=== PATIENT | female | born 1965 | race Caucasian/White ===

== ENCOUNTER 2018-06-17 22:57 | Observation (INO) ==
[2018-06-17] MEDS ORDERED: ASPIRIN PO ONE (23:41)
[2018-06-18] MEDS ORDERED: NITROGLYCERIN TOP ONE (00:24)
[2018-06-18 00:29] LABS: ESTIMATED GFR > 60
[2018-06-18 00:31] LABS: AGAP 13; ALBUMIN 3.9 g/dL (3.5-5.0); ALKALINE PHOSPHATASE 239 U/L (32-104); BUN 20 mg/dL (8-22); CALCIUM 9.7 mg/dL (8.8-10.2); CHLORIDE 90 mmol/L (98-107); CK PROFILE 48 U/L (24-173); COSMO 289; CREATININE 0.7 mg/dL (0.5-0.9); GOT 23 U/L (10-30); GPT 30 U/L (10-36); POTASSIUM 4.3 mmol/L (3.5-5.1); SODIUM 126 mmol/L (136-145); TCO2 23 mmol/L (25-35); TOTAL PROTEIN 7.4 g/dL (6.3-8.3)
[2018-06-18 00:32] LABS: GLUCOSE 686 mg/dL (70-104)
[2018-06-18 00:33] LABS: INR 0.85; PROTIME 12.1 Seconds (11.0-16.0)
[2018-06-18 00:34] LABS: PTT 25.1 Seconds (22.3-41.8)
[2018-06-18] MEDS ORDERED: HUMULIN R IV ONE (00:34)
[2018-06-18] MEDS ORDERED: NS 1,000 ML IV ONE ×2 (00:35→01:46)
[2018-06-18] MEDS ORDERED: HUMULIN R (PARKWAY) ONE ×2 (00:36→08:06)
--- NOTE | 2018-06-18 00:44 | PROVIDER DOCUMENTATION ---
This chart was entered by Flory Joya Scribe, acting as scribe for Karl Forbes MD. HPI-Chest Pain - General Chief Complaint: Chest Pain Stated Complaint: EXTREMITY PAIN Time Seen by Provider: 06/17/18 23:52 Source: patient Allergies/Adverse Reactions: Patient Allergies Allergy/AdvReac Type Severity Reaction Status Date / Time Aminoglycosides Allergy Severe ANAPHYLAXIS Unverified 02/01/18 13:41 meperidine [Meperidine] Allergy Severe ANAPHYLAXIS Unverified 02/01/18 13:41 streptomycin [Streptomycin] Allergy Severe ANAPHYLAXIS Unverified 02/01/18 13:41 Sulfa (Sulfonamide Allergy Severe ANAPHYLAXIS Unverified 02/01/18 13:41 Antibiotics) [Sulfa(Sulfonamide Antibiotics)] codeine Allergy RASH Verified 02/01/18 13:41 Penicillins Allergy RASH Verified 02/01/18 13:41 erythromycin lactobionate * AdvReac SHORTNESS Verified 02/01/18 13:41 [From Erythrocin] OF BREATH Home Medications: Home Medication List Medication Instructions Recorded Confirmed Last Taken Type Budesonide/Formoterol Inhaler 60 puff INH BID 02/05/12 02/05/12 02/05/12 08:00 History [Symbicort 160-4.5 Microgm Inhaler] Bupropion [Wellbutrin] 75 mg PO DAILY 02/05/12 02/05/12 02/05/12 08:00 History Clonidine [Catapres] 0.1 mg PO DAILY 02/05/12 02/05/12 02/04/12 History Clopidogrel [Plavix] 75 mg PO DAILY 02/05/12 02/05/12 02/05/12 08:00 History Diltiazem HCl [Cardizem Cd] 360 mg PO DAILY 02/05/12 02/05/12 02/05/12 08:00 History Docusate Sodium [Colace] 100 mg PO BID 02/05/12 02/05/12 05/08/11 20:00 History Docusate Sodium [Colace] 100 mg PO BID 02/05/12 02/05/12 02/05/12 08:00 History Fluticasone 50 Mcg Nasal [place] 16 gm NS PRN PRN 02/05/12 02/05/12 Unknown History [Flonase] Folic Acid 1 mg PO DAILY 02/05/12 02/05/12 02/05/12 08:00 History Furosemide [Lasix] 20 mg PO PRN PRN 02/05/12 02/05/12 Unknown History Hydrocodone/Acetaminophen [Lortab 1 each PO TID 02/05/12 02/05/12 02/05/12 08:00 History 7.5-500 Tablet] Hydrocodone/Acetaminophen [Lortab 1 each PO TID 02/05/12 02/05/12 02/05/12 12:00 History 7.5-500 Tablet] Lorazepam [Ativan] 0.5 mg PO QHS 02/05/12 02/05/12 Unknown History Lorazepam [Ativan] 1 mg PO DAILY 02/05/12 02/05/12 02/05/12 08:00 History Losartan/Hctz [Hyzaar 100-12.5 mg 1 each PO DAILY 02/05/12 02/05/12 02/05/12 08:00 History Tab] Mirtazapine [Remeron] 45 mg PO QHS 02/05/12 02/05/12 02/04/12 History Omeprazole [Prilosec] 20 mg PO DAILY 02/05/12 02/05/12 02/05/12 08:00 History Oxymetazoline Nasal [place] [Afrin 15 ml MISC PRN PRN 02/05/12 02/05/12 Unknown History Nasal [place]] Potassium Chloride E.r. [K-Dur] 10 meq PO BID 02/05/12 02/05/12 05/07/11 History Potassium Chloride E.r. [K-Dur] 10 meq PO BID 02/05/12 02/05/12 02/05/12 08:00 History Pravastatin Sodium [Pravachol] 20 mg PO QHS 02/05/12 02/05/12 Unknown History Prednisone 1 mg PO DAILY 02/05/12 02/05/12 02/05/12 08:00 History Prednisone 5 mg PO DAILY 02/05/12 02/05/12 02/05/12 08:00 History Promethazine [Phenergan] 25 mg PO Q6HR 02/05/12 02/05/12 Unknown History Sertraline [Zoloft] 150 mg PO DAILY 02/05/12 02/05/12 02/05/12 08:00 History Tramadol [Ultram] 50 mg PO TID 02/05/12 02/05/12 02/05/12 08:00 History Tramadol [Ultram] 50 mg PO TID 02/05/12 02/05/12 02/05/12 12:00 History Aspirin 81 mg PO DAILY 04/03/15 04/03/15 03/24/15 History Insulin Aspart [Novolog Flexpen] 0 unit SQ PRN PRN 04/03/15 04/04/15 04/02/15 History Lisinopril 10 mg PO BID 04/03/15 04/04/15 04/03/15 22:00 History Metformin HCl [Metformin HCl ER] 1,000 mg PO BID 04/03/15 04/04/15 04/03/15 22:00 History Metoprolol Tartrate 0.5 tab PO BID 04/03/15 04/04/15 04/03/15 22:00 History SIMVAstatin [Zocor] 10 mg PO QHS 04/03/15 04/04/15 04/02/15 History Saxagliptin HCl [Onglyza] 2.5 mg PO BID 04/03/15 04/04/15 04/03/15 22:00 History Hydrocodone/Acetaminophen [[place] 1 each PO Q4-6H PRN PRN #30 tablet 04/04/15 Unknown Rx 10-325 Tablet] - History of Present Illness-CP Nature of Presenting Problem: Pt is 52/F with history of CAD (S/P NM & CABG in 2012),diabetes, HTN who presents w/ 4-07/22 substernal chest heaviness that runs down L arm, L shoulder, and back- onset at 1430 today. Pt has taken 81mg of Aspirin at home this morning and has taken gas pills at home w/ no relief. FH is postive for CAD (mom at age 50 of [place]). Location: reports: substernal Chest Pain Radiation: reports: shoulders, back Quality of Pain: reports: pressure Severity in ED: moderate Onset/Duration: this afternoon Timing: still present Context/Activities at Onset: reports: light activity Modifying Factors: improves with: nothing Associated Symptoms: reports: back pain. denies: abdominal pain, diaphoresis, fever/chills, nausea, shortness of breath, vomiting Nitro Today/Relief: no nitro taken today Aspirin Treatment Today: 81 mg x 1 Review of Systems - Adult - REVIEW OF SYSTEMS - ADULT Constitutional: reports: no symptoms reported. denies: chills, fever Eyes: reports: no symptoms reported Ears, Nose, Mouth & Throat: reports: no symptoms reported Cardiovascular: reports: chest pain. denies: edema Respiratory: denies: cough, shortness of breath, wheezing Gastrointestinal: reports: no symptoms reported. denies: abdominal pain, diarrhea, nausea, vomiting Genitourinary: reports: no symptoms reported Musculoskeletal: reports: no symptoms reported Integumentary: reports: no symptoms reported Neurological: reports: no symptoms reported Psychiatric: reports: no symptoms reported Endocrine: reports: no symptoms reported Hematologic/Lymphatic: reports: no symptoms reported Allergic/Immunologic: reports: no symptoms reported All Other Systems: Reviewed and Negative Past History - Adult - PAST MEDICAL HISTORY-ADULT Review of Records: reports: Old Records Reviewed, Nursing Assessment Review, Medications Reviewed, Social history reviewed & non-contributory. Cardiovascular: reports: [place] Diabetes Type: Type 2 Diabetes controlled by:: PO Meds - PRIOR SURGERIES/PROCEDURES Surgical/Procedure History: reports: CABG - FAMILY HISTORY Family History: CAD under 55yo - SOCIAL HISTORY Smoking: quit greater than 1 year, cigarettes Substance Use: none/never Alcohol Use Frequency: never Physical Exam-General - PHYSICAL EXAM-ADULT Initial Vital Signs Reviewed: Yes - CONSTITUTIONAL General Appearance: appears well, alert, no apparent distress - EYES Eyes: PERRL/EOMI, pink conjunctivae - HEAD, EARS, NOSE, MOUTH & THROAT HENMT: normocephalic/atraumatic, moist mucous membranes, normal ENT inspection, TMs normal, pharynx normal - NECK Neck: non-tender, full range of motion, supple, normal inspection - RESPIRATORY Respiratory: lungs clear - CARDIOVASCULAR Cardiovascular: normal peripheral pulses, no edema, tachycardia (116), other (chest pain is not reproducable upon palpation) - GASTROINTESTINAL (ABDOMEN) Abdominal Exam: normal bowel sounds, non tender, soft - LYMPHATIC Lymphatic: no adenopathy - MUSCULOSKELETAL Back Exam: normal inspection Extremity: normal range of motion, non-tender, normal gait, normal inspection - SKIN Integumentary: normal color, warm/dry - NEUROLOGIC Neurologic: grossly normal - PSYCHIATRIC Psych/Mental Status: normal mood/affect, normal thought content, normal thought process, oriented x 3 - HEART Score HEART Score: History: Highly Suspicious HEART Score: ECG: Normal HEART Score: Age: 45-65 Years HEART Score: Risk Factors for Atherosclerotic Disease: > or = 3 Risk Factors or History of Atherosclerotic Disease HEART Score: Troponin: < or = Normal Limit Total HEART Score:: 5 Progress - PLAN OF CARE/RESULTS Progress/Plan/Lab Results: Vital Signs - 8 hr 06/17/18 23:32 Temperature 98.5 F Pulse Rate 116 H Respiratory Rate 15 Blood Pressure 157/93 O2 Sat by Pulse Oximetry 99 Laboratory Results - last 24 hr 06/17/18 06/17/18 06/17/18 23:54 23:54 23:54 WBC 8.91 RBC 5.00 Hgb 15.8 Hct 42.8 MCV 85.6 MCH 31.6 H MCHC 36.9 RDW Std Deviation 12.5 Plt Count 221 MPV 11.4 H Immature Gran % (Auto) 0.4 Neut % (Auto) 61.5 Lymph % (Auto) 29.5 Desha % (Auto) 7.2 Eos % (Auto) 1.2 Baso % (Auto) 0.2 Immature Gran # (Auto) 0.04 Neut # (Auto) 5.47 Lymph # (Auto) 2.63 Desha # (Auto) 0.64 H Eos # (Auto) 0.11 Baso # (Auto) 0.02 PT INR PTT (Actin FS) Sodium 126 L Potassium 4.3 Chloride 90 L Carbon Dioxide 23 L Anion Gap 13 BUN 20 Creatinine 0.7 Estimated GFR/1.73 m2 > 60 BUN/Creatinine Ratio 29 Glucose 686 H* Calculated Osmolality 289 Calcium 9.7 Total Bilirubin 0.50 AST 23 ALT 30 Alkaline Phosphatase 239 H Creatine Kinase 48 Troponin T [id number] Pept 111 Total Protein 7.4 Albumin 3.9 Globulin 4.0 Albumin/Globulin Ratio 1.0 06/17/18 06/17/18 23:54 23:54 WBC RBC Hgb Hct MCV MCH MCHC RDW Std Deviation Plt Count MPV Immature Gran % (Auto) Neut % (Auto) Lymph % (Auto) Desha % (Auto) Eos % (Auto) Baso % (Auto) Immature Gran # (Auto) Neut # (Auto) Lymph # (Auto) Desha # (Auto) Eos # (Auto) Baso # (Auto) PT 12.1 INR 0.85 PTT (Actin FS) 25.1 Sodium Potassium Chloride Carbon Dioxide Anion Gap BUN Creatinine Estimated GFR/1.73 m2 BUN/Creatinine Ratio Glucose Calculated Osmolality Calcium Total Bilirubin AST ALT Alkaline Phosphatase Creatine Kinase Troponin T < 0.010 [id number] Pept Total Protein Albumin Globulin Albumin/Globulin Ratio Orders Category Date Time Status Cardiac Monitoring DIRECTED Care 06/17/18 23:41 Active Oxygen Therapy- ED Nursing DIRECTED Care 06/17/18 23:41 Active Saline Loc NOW Care 06/17/18 23:41 Active CHEST-PORTABLE [RAD] Stat Exams 06/17/18 23:53 Taken CBC WITH ELECTRONIC DIFF [HEME] Stat Lab 06/17/18 23:54 Completed CK PROFILE [SP CHEM] Stat Lab 06/17/18 23:54 Completed COMPREHENSIVE METABOLIC PANEL [CHEM] Stat Lab 06/17/18 23:54 Completed PRO B-NATRIURETIC PEPTIDE Stat Lab 06/17/18 23:54 Completed PROTIME WITH INR [COAG] Stat Lab 06/17/18 23:54 Completed PTT [COAG] Stat Lab 06/17/18 23:54 Completed TROPONIN T Stat Lab 06/17/18 23:54 Completed 0.9% Sodium Chloride Inj [Ns] 1,000 ml Med 06/18/18 00:35 Active IV 999 mls/hr Aspirin Med 06/17/18 23:41 Discontinued 325 mg PO NOW ONE Enoxaparin [Lovenox] Med 06/18/18 01:40 Once 80 mg SUBQ NOW ONE Insulin Human Regular ([place] [Humulin R ([place])] Med 06/18/18 00:36 Discontinued 10 units .ROUTE .STK-MED ONE Insulin Human Regular [Humulin R] Med 06/18/18 00:34 Discontinued 10 unit IV NOW ONE Morphine Med 06/18/18 01:44 Once 4 mg IV NOW ONE Nitroglycerin Med 06/18/18 00:24 Discontinued 0.5 inch TOP NOW ONE Ondansetron [Zofran] Med 06/18/18 01:45 Once 4 mg IV NOW ONE CP/SOB/Palp >45 yrs of Age Stat Oth 06/17/18 23:41 Ordered EKG [EKG] Stat Ther 06/17/18 23:41 Ordered Result Diagrams: 06/17/18 23:54 06/17/18 23:54 - REASSESSMENT Reassessment #1 Time Reassessed: 01:42 Status: improving Reassessment Comment: chest pain is gone but her back is hurting - EKG 1 Time of EKG reading by physician:: 23:48 EKG Read and Signed by:: Karl Forbes EKG Interpretation (*Must complete 3 of following elements*): Abnormal Rate: 114 Rhythm: sinus tach [place]: normal QRS: normal MT Interval: normal ST Wave: non-specific ST changes Comments: no STEMI - CONSULTS/PCP/HOSPITALIST Notification #1 *Consult/PCP/Hospitalist*: Dr. Sargent, hospitalist Time Discussed: :45 Consult Disposition: Admit Departure - Departure Date of Disposition Decision: 06/18/18 Time of Disposition Decision: 01:45 DIAGNOSIS: Uncontrolled diabetes mellitus Qualifiers: Diabetes mellitus type: type 2 Glycemic state: with hyperglycemia Qualified Code(s): E11.65 - Type 2 diabetes mellitus with hyperglycemia Chest pain Qualifiers: Chest pain type: unspecified Qualified Code(s): R07.9 - Chest pain, unspecified CAD (coronary artery disease) Qualifiers: Coronary Disease-Associated Artery/Lesion type: unspecified vessel or lesion type [place] vs. transplanted heart: unspecified whether [place] or transplanted heart Associated angina: angina presence unspecified Qualified Code(s): I25.10 - Atherosclerotic heart disease of [place] coronary artery without angina pectoris Disposition: ADMITTED INPATIENT 09 Certified Medical Emergency: Emergent Condition: Stable Referrals and Follow-Ups: Mars Alexandre MD [Primary Care Provider] - - Critical Care Note This patient required my direct & personal management of CC.: No Attestation - Physician/ HUMPHREY Attestation Patient care was provided by Advanced Practice Provider:: No The physician spent face to face time with patient:: Yes Advanced Practice Provider documentation review:: Supervising physician onsite and consulted in the evaluation and care of this patient. The physician did have a face to face encounter with the patient. This chart was documented by the indicated scribe, (Flory Joya Scribe) and accurately reflects the services I performed and decisions made by me, Karl Forbes MD, as attested by the provider's signature.
[2018-06-18 00:55] LABS: BASO# 0.02 X1000 (0.0-0.2); BASO% 0.2 % (0.0-0.8); EOS# 0.11 X1000 (0.0-0.7); EOS% 1.2 % (0.0-10.0); HEMATOCRIT 42.8 % (37.0-47.0); HEMOGLOBIN 15.8 g/dL (12.0-16.0); IMM GRAN# 0.04 X1000 (0.0-0.04); IMM GRAN% 0.4 % (0.0-0.5); LYMPH# 2.63 X1000 (1.2-3.4); LYMPH% 29.5 % (20.5-51.1); MCH 31.6 PG (27-31); MCHC 36.9 g/dL (33-37); MCV 85.6 FL (81-99); MONO# 0.64 X1000 (0.11-0.59); MONO% 7.2 % (1.7-9.3); MPV 11.4 FL (7.4-10.4); NEUT# 5.47 X1000 (1.4-6.5); NEUT% 61.5 % (42.2-75.2); PLT 221 X1000 (130-400); RDW 12.5 % (11.5-14.5); WBC 8.91 X1000 (4.8-10.8)
[2018-06-18] MEDS ORDERED: LOVENOX SUBQ ONE (01:40)
[2018-06-18] MEDS ORDERED: MORPHINE IV ONE (01:44)
[2018-06-18] MEDS ORDERED: ZOFRAN IV ONE (01:45)
[2018-06-18] MEDS: HUMULIN R SUBQ SCH ×2 (06:47→08:10)
[2018-06-18] MEDS: ZOFRAN IV PRN ×2 (06:48→21:23)
[2018-06-18] MEDS ORDERED: TYLENOL PO ONE (07:53)
--- NOTE | 2018-06-18 09:44 | Diag Imaging Result Doc PS360 ---
EXAM: CHEST-PORTABLE - 06/17/2018 HISTORY: cp TECHNIQUE: Portable chest COMPARISON: None. FINDINGS: Heart size is normal. There are sternal wires from previous surgery. There is mild elevation of the right hemidiaphragm. The lungs appear clear. There is no pleural effusion or pneumothorax identified. IMPRESSION: Mild elevation right hemidiaphragm. No other evidence of acute disease. Electronically signed by Hakeem Johnson 06/18/2018 9:42 AM
[2018-06-18] MEDS ORDERED: HUMULIN R (PARKWAY) SUBQ SCH (10:13)
[2018-06-18] MEDS: MORPHINE IV PRN ×3 (11:29→20:10)
[2018-06-18] MEDS ORDERED: TYLENOL PO PRN (11:44)
[2018-06-18] MEDS ORDERED: GAVISCON PO PRN (11:52)
[2018-06-18] MEDS: ASPIRIN PO SCH (12:35)
--- NOTE | 2018-06-18 14:35 | CARDIOLOGY CONSULTATION ---
DATE: 06/18/2018 Patient is a 52-year-old, lady with history of diabetes, coronary artery disease, hypertension, coronary artery bypass grafting, comes with complaints of increasing chest pain. She has had this chest pain since yesterday. Describes as left-sided pressure with radiation to the left arm. There is no associated shortness of breath. She feels discomfort. There are no palpitations. There is no dizziness or syncope. She last underwent a coronary artery bypass grafting in 2013 in [place] and her booth cleaner is in [place]. She had a stress test done 6 months back and an echocardiogram as well which per patient were unremarkable. She has been taking her medications regularly. REVIEW OF SYSTEM: A 14 point review of systems was done.Cardiovascular: There are no palpitations. There is no dizziness or syncope. Respiratory System: There is no history of cough, expectoration, hemoptysis. Genitourinary: There is no dysuria or hematuria. Respiratory: There is no history of recent fevers or chills. PAST MEDICAL HISTORY: 1. Coronary artery disease, coronary artery bypass grafting. 2. Hypertension. 3. Diabetes. 4. Strong family history of coronary artery disease. 5. Patient quit smoking more than a year ago, had smoked in the past. HOME MEDICATIONS: Include metoprolol 50 mg 1 tablet p.o. b.i.d., lisinopril 10 b.i.d., enteric- coated aspirin, metformin. ALLERGIES: She is allergic to aminoglycosides, meperidine, streptomycin. PHYSICAL EXAMINATION: Vital Signs: Blood pressure was 116/71. Cardiovascular: Normal jugular venous pressure. There was no thyromegaly. No carotid bruit. First and second heart sounds were heard. There was no S3 gallop. Respiratory: Normal air entry. There are no crepitations or rhonchi. Abdomen: Soft, nontender. There was no guarding or rigidity. Bowel sounds were heard. Central nervous system: Alert and oriented. Moving all 4 extremities. Extremities: Revealed no pedal edema. HEENT: Atraumatic, normocephalic. Pupils were equal and reacting to light. LABORATORY EXAMINATION: Hemoglobin 15.8, WBC 8.9, hematocrit 42, platelet count of 221,000. Chemistry: Sodium 126, potassium 4.3, BUN 20, creatinine 0.7. Glucose was 686. Three sets of cardiac enzymes were negative. Chest x-ray was unremarkable. ASSESSMENT AND PLAN: Ms. Va Hughes is a 52-year-old lady with history of coronary artery disease, coronary artery bypass grafting, strong family history of coronary artery disease, hypertension, diabetes, comes with complaints of having left-sided chest pain radiating to the left arm intermittently since yesterday. She has mild chest discomfort at the present time. She has been ruled out for myocardial infarction and her EKG did not reveal any acute ST-T changes. PLAN: 1. She has seen her booth cleaner 6 months back in [place] and per patient stress test was unremarkable. Given her ongoing chest pain would recommend left heart catheterization and she can be transferred to [place] and see her booth cleaner there in the interim. I will add Ranexa 500 mg to be taken twice daily to her medical regimen. 2. She has come in with elevated blood sugars of 686 and has significant history of diabetes. I am not sure whether this was not triggered by ischemic event making her blood sugars worse or whether she has been noncompliant with diet. Regardless blood sugars need to be treated. They have improved. 3. Hypertension. Continue with lisinopril. 4. We will get an echocardiogram to assess cardiac and valvular function. Thank you for the consult. cc: Jack Ga MD
[2018-06-18] MEDS: HUMULIN R (PARKWAY) SUBQ SCH ×2 (18:00→20:07)
--- NOTE | 2018-06-18 18:06 | HISTORY AND PHYSICAL ---
PRIMARY CARE PHYSICIAN: Dr. Mars Alexandre. CHIEF COMPLAINT: Chest pain. HISTORY OF PRESENT ILLNESS: Ms. Hughes is a 52-year-old female with a history of known coronary artery disease, uncontrolled diabetes mellitus, GERD and depression. She presents with chest pain that began about 3 days ago. She initially thought she was having indigestion, but this progressed to a midsternal chest pain radiating down the left arm. The pain starts in the epigastric midsternal region and radiates to the left arm and back. There is really no correlation with exertion. The pain is intermittent and lasts between 3 to 5 minutes when it does come on. There is no vomiting. She does have some nausea. She is also complaining of heaviness in both legs. When she got to the ER last night, her blood sugar was noted to be in the high 600s. She reports that she has not been compliant with her medication because she needs to get it refilled. Her troponins are negative x2 sets. She is going to be admitted for further treatment and evaluation. PAST MEDICAL HISTORY: 1. Known coronary disease. She has had a bypass in 2012. 2. Hypertension. 3. Hyperlipidemia. 4. Diabetes mellitus, poorly controlled. 5. Depression. PAST SURGICAL HISTORY: She has had a left knee scope, , hysterectomy, tonsillectomy. SOCIAL HISTORY: She quit smoking in 2012. She denies alcohol, tobacco or drug use. She is . She works at [employer] in [place], [place]. FAMILY HISTORY: Significant for coronary disease. Mother at 50 years old with AL. Father with lung cancer but had a large AL as well. ALLERGIES: Aminoglycosides, meperidine, streptomycin, sulfa, penicillin, erythromycin. HOME MEDICATIONS: Tylenol every 6-8 hours as needed, aspirin 81 mg daily, lisinopril 10 mg b.i.d., metformin 500 mg p.o. b.i.d. (but she has not been on this for 2 weeks), metoprolol tartrate 1 tab b.i.d., dose unknown, Yulia Vina Heartburn 1 as needed. REVIEW OF SYSTEMS: A 14-point review of systems was obtained and found to be negative with the exception of the HPI. PHYSICAL EXAMINATION: VITAL SIGNS: Blood pressure is 96/64, heart rate 101, respiratory rate 18, O2 saturation 100% on nasal cannula, temperature 97.6. GENERAL: This is a well-developed, well-nourished female lying in the hospital bed in no acute distress. HEENT: Head is atraumatic and normocephalic. Pupils are equal, round and reactive to light. Oral mucosa is moist. NECK: Trachea is midline. There is no JVD. CHEST: Decreased at the bases but clear to auscultation bilaterally. CV: Regular rate and rhythm. S1 and S2 is noted. No murmurs, gallops, clicks or rubs. GI: Soft, nondistended, nontender. Bowel sounds positive. EXTREMITIES: No edema, clubbing or cyanosis. Pulses 1+ bilaterally. DIAGNOSTIC DATA: Chest x-ray shows mild elevation of the right hemidiaphragm, otherwise negative. EKG shows sinus tachycardia, nonspecific ST changes. WBCs 8.91, hemoglobin 15.8, hematocrit 42.8, platelet count 221. INR is 0.85. Sodium is 126, potassium 4.3, chloride 90. CO2 is 23, anion gap 13, BUN 20, creatinine 0.7, glucose 686. Calcium 289. AST 23, ALT 30, alkaline phosphatase 239. Troponin negative x2 sets, proBNP 111. Albumin 3.9. ASSESSMENT/PLAN: 1. Chest pain: The patient was given 1 mg/kg of Lovenox in the emergency room last night at around midnight. Will continue aspirin and beta rosalinda. Her symptoms are atypical; however, she does have a history of coronary disease. Cardiology has been consulted. Will monitor telemetry and follow. 2. Uncontrolled diabetes mellitus: The patient has stabilized with insulin. Will continue sliding scale and hold her metformin for now. Will check a hemoglobin A1c and lipid panel. Continue education on diabetes daily. 3. Hypertension, stable. Continue home medications. 4. Deep venous thrombosis prophylaxis provided with Lovenox. 5. Further recommendations to follow. Dictated by MARIBELL Mcintosh for Kishor Sargent MD cc: MARIBELL Mcinotsh MD
[2018-06-18] MEDS ORDERED: LOPRESSOR PO SCH (21:00)
--- NOTE | 2018-06-18 21:09 | HISTORY AND PHYSICAL ---
ADDENDUM: Patient seen and examined by myself, full note dictated discussed with nurse practitioner. Patient presented to the hospital with chest pain. She did have a stress test approximately 6 months ago that was negative per the patient, although she admits that she does not have the final results. We have consulted [*] cc: Kishor Sargent MD
[2018-06-18] MEDS: LOPRESSOR PO SCH (21:19)
[2018-06-18] MEDS: PRINIVIL PO SCH (21:20)
[2018-06-19] MEDS: ZOFRAN IV PRN (03:20)
[2018-06-19] MEDS: MORPHINE IV PRN ×2 (03:20→11:33)
[2018-06-19] MEDS: HUMULIN R (PARKWAY) SUBQ SCH ×4 (06:32→22:33)
[2018-06-19 07:02] LABS: HEMATOCRIT 41.3 % (37.0-47.0); HEMOGLOBIN 14.5 g/dL (12.0-16.0); MCH 30.9 PG (27-31); MCHC 35.1 g/dL (33-37); MCV 88.1 FL (81-99); MPV 11.3 FL (7.4-10.4); RBC 4.69 XMIL (4.2-5.4); RDW 12.5 % (11.5-14.5); WBC 7.25 X1000 (4.8-10.8)
[2018-06-19 07:10] LABS: AGAP 10; BUN 11 mg/dL (8-22); CALCIUM 8.4 mg/dL (8.8-10.2); CHLORIDE 101 mmol/L (98-107); COSMO 280; CREATININE 0.5 mg/dL (0.5-0.9); ESTIMATED GFR > 60; GLUCOSE 226 mg/dL (70-104); POTASSIUM 4.2 mmol/L (3.5-5.1); SODIUM 137 mmol/L (136-145); TCO2 27 mmol/L (25-35)
[2018-06-19 07:55] LABS: HEMOGLOBIN A1C > 17.0 % (4.8-6.0)
[2018-06-19] MEDS: ASPIRIN PO SCH (09:17)
[2018-06-19] MEDS: RANEXA PO SCH ×2 (09:18→22:29)
[2018-06-19] MEDS: PRINIVIL PO SCH ×3 (09:18→22:29)
[2018-06-19] MEDS: LOPRESSOR PO SCH ×3 (09:18→22:33)
[2018-06-19] MEDS ORDERED: BASAGLAR SUBQ ONE (15:19)
[2018-06-19] MEDS ORDERED: INSULIN PEN NEEDLES ONE (15:50)
--- NOTE | 2018-06-19 16:01 | ECHO REPORT ---
ORDER DATE: 06/18/2018 2-D ECHOCARDIOGRAM: ECHOCARDIOGRAPHIC MEASUREMENTS: 1. Interventricular septum 0.9. 2. Left ventricular posterior wall 0.9. 3. Diastolic diameter 4.5. 4. Left ventricular systolic diameter 2.7. 5. Left atrium 3. 6. Aorta 3. SUMMARY: 1. Mitral valve leaflets are normal. 2. Aortic valve leaflets are trileaflet. Pulmonic valve was normal. There is trace pulmonary regurgitation. Trace tricuspid regurgitation. Peak velocity across the tricuspid valve was 2.6 m/sec. Normal left ventricular cavity size. Estimated ejection fraction of 65%. 3. There is mild mitral regurgitation. Peak velocity across the aortic valve less than 2 m/sec. There is no aortic stenosis or regurgitation. 4. There is no pericardial effusion or obvious intracardiac mass or thrombus seen. cc: MD Juan Chan CRNP
[2018-06-19] MEDS: NORCO-5 PO PRN (17:40)
--- NOTE | 2018-06-19 22:00 | PROGRESS NOTE ---
DATE: 06/19/2018 SUBJECTIVE: The patient notes she is still having chest pain. Denies any fevers or chills. OBJECTIVE: Vital signs: She is afebrile. Vital signs are stable. General: She is awake, alert, oriented. HEENT: Normocephalic. Neck: Supple. CARDIOVASCULAR: Regular rate. Chest: Clear, nonlabored. Abdomen: Soft, nondistended. Extremities: Moves all extremities. IMPRESSION: 1. Chest pain in a patient with known coronary artery disease and a significant family history. 2. Diabetes with extremely poor home care, with an A1c of 17. 3. Hypertension. 4. Depression. PLAN: We will continue the patient in the hospital. We will continue to adjust her blood sugar medication. We will reach out to Dr. Ga and let him know that Ms. Hughes has decided to stay and have a heart catheterization at [place]. He had offered this yesterday, and she was unsure. We will transfer to [place] for heart catheterization once Cardiology has made arrangements. cc: Kishor Sargent MD
[2018-06-20] MEDS: HUMULIN R (PARKWAY) SUBQ SCH ×2 (06:24→12:12)
[2018-06-20] MEDS: NORCO-5 PO PRN (06:24)
[2018-06-20] MEDS: MORPHINE IV PRN ×3 (07:22→15:33)
[2018-06-20 07:43] LABS: HEMOGLOBIN 15.2 g/dL (12.0-16.0); MCH 31.1 PG (27-31); MCHC 35.3 g/dL (33-37); MCV 88.1 FL (81-99); MPV 11.2 FL (7.4-10.4); RBC 4.88 XMIL (4.2-5.4); RDW 12.7 % (11.5-14.5); WBC 7.26 X1000 (4.8-10.8)
[2018-06-20 07:56] LABS: AGAP 11; BUN 11 mg/dL (8-22); CALCIUM 8.5 mg/dL (8.8-10.2); CHLORIDE 103 mmol/L (98-107); COSMO 284; CREATININE 0.5 mg/dL (0.5-0.9); ESTIMATED GFR > 60; GLUCOSE 227 mg/dL (70-104); POTASSIUM 4.2 mmol/L (3.5-5.1); SODIUM 139 mmol/L (136-145); TCO2 26 mmol/L (25-35)
[2018-06-20] MEDS: RANEXA PO SCH (09:36)
[2018-06-20] MEDS: LOPRESSOR PO SCH (09:37)
[2018-06-20] MEDS: PRINIVIL PO SCH (09:37)
[2018-06-20] MEDS: ASPIRIN PO SCH (09:37)
--- NOTE | 2018-06-20 12:11 | EKG Report ---
Test Performed on : 06/17/2018 11:47:53 PM Test Reason : CP Blood Pressure : / mmHG Vent. Rate : 114 BPM Atrial Rate : 114 BPM P-R Int : 126 ms QRS Dur : 088 ms QT Int : 336 ms P-R-T Axes : 068 070 072 degrees QTc Int : 463 ms Sinus tachycardia. Nonspecific ST abnormality Abnormal ECG No previous ECGs available Unconfirmed Result
[2018-06-20 15:07] VITALS: BP 108/65
--- NOTE | 2018-06-21 03:31 | DISCHARGE SUMMARY ---
ADMISSION DATE: 06/18/2018 DISCHARGE DATE: 06/20/2018 This is MARIBELL Cook dictating a discharge summary for Willy Buchanan MD. PRIMARY CARE PROVIDER: Mars Alexandre MD. DATE OF ADMISSION: 08/18/2018. DATE OF TRANSFER: 06/20/2018. CONSULTATIONS: Dr. Ga of Cardiology. PERTINENT PROCEDURES: 1. EKG showed sinus tachycardia with nonspecific ST abnormality at a rate of 114 beats per minute. 2. Chest x-ray with mild elevation of the right hemidiaphragm. No other evidence of acute disease. 3. Echocardiogram EF of 65%. Mild mitral regurgitation. DISCHARGE DIAGNOSES: 1. Chest pain in a patient with known coronary artery disease status post coronary artery bypass grafting in 2012, with a strong family history of coronary artery disease. The patient was evaluated by Dr. Ga with Cardiology. Three sets of cardiac enzymes have been negative. Electrocardiogram is unremarkable. She was initiated on Ranexa twice a day. The recommendation was to be transferred to [facility] for a left heart catheterization. 2. Uncontrolled diabetes mellitus type 2. Initial blood sugar was 868. Hemoglobin A1c is 17, blood sugars are in 200s since admission. 3. Hypertension, controlled. 4. Depression. 5. Hyperlipidemia. HOSPITAL COURSE: Briefly, Ms. Hughes is a 52-year-old female with a known history of coronary artery disease status post CABG, uncontrolled diabetes mellitus, GERD and depression, who reported chest pain that began 3 days prior to admission. She thought she was having indigestion but it progressed to midsternal chest pain radiating down the left arm and into her back, there was no exertional component. The pain was intermittent and lasted between 3 and 5 minutes. There was no vomiting, but did report some nausea, heaviness felt in both legs. When she got to the ER her blood sugar was noted to be high in the 600s. She has not been compliant with her diabetes medicine secondary to needing refills. She has had 3 sets of negative troponins. Her blood glucoses have been managed in the 200s. She was evaluated by Cardiology, who initiated her on Ranexa 500 twice a day and recommended transfer to [facility] for a left heart catheterization. She has had a stable hospital course. She has been accepted [facility], and will be transferred as soon as they have a bed. DISCHARGE VITAL SIGNS: Vital signs at the time of discharge, temperature is 97.9 degrees, heart rate 86, respirations 20, blood pressure 110/71, O2 is 99% on 1 L nasal cannula. DISPOSITION: The patient will be transferred to [facility] under Dr. Germain for a left heart catheterization. Dictated by MARIBELL Cook for Willy Buchanan MD cc: MD Mars Arredondo MD Michael Ridner
--- NOTE | 2018-06-21 08:37 | DISCHARGE SUMMARY ---
ADMISSION DATE: 06/18/2018 DISCHARGE DATE: 06/20/2018 DISCHARGE DIAGNOSIS: Atypical chest pain with possible unstable angina. The patient is still complaining of some chest pain today, but she seems to be doing a bit better. She is very frustrated because she is not able to eat. She kept herself NPO since 4:00 in the evening yesterday. She could have eaten up until midnight. I do not think anybody told her differently. In any case, her labs look okay. Her sugars are doing okay. Her exam is unremarkable. Cardiovascular regular rate and rhythm. Pulmonary bilateral breath sounds. Clear to auscultation. Her A1c is 17. She seems to be doing okay. I think the plan is to transfer her per Dr. Ga for left heart catheterization. She is going to [place]. We will keep her NPO for the time being. This is a [id number] encounter note with Ida King. cc: Willy Buchanan MD
== END 2018-06-20 15:45 | disposition short-term general hospital (02) ==
LOC: P.ED 22:57 → P.EDIPHOLD 06-18 02:37 → SUATTDRO 06-18 02:37 → INTOOBSV 06-18 02:37 → P.MEDSURG 06-18 08:45
PROVIDERS: ATTEND Internal Medicine
CPT/HCPCS: 71010; 71045; 80048; 80053; 82550; 82947; 82948; 83036; 83880; 84484; 85025; 85027; 85379; 85610; 85730; 93005; 93306; 94761; 96372; 96374; 96375; 96376; 99285; A9270; J1650; J1815; J2270; J2405; J7030; XXXXX